=== PATIENT | female | born 1975 | race African-American/Black ===

== ENCOUNTER 2017-06-06 13:05 | Emergency (ER) | payer MEDICAID | END 2017-06-06 15:59 | disposition home or self-care (01) | LOC: D.ER 13:05 | DX: M25.512 Pain in left shoulder (principal); S46.912A Strain of unspecified muscle, fascia and tendon at shoulder and upper arm level, left arm, initial encounter; X58.XXXA Exposure to other specified factors, initial encounter; Y93.89 Activity, other specified; Y92.89 Other specified places as the place of occurrence of the external cause; M19.012 Primary osteoarthritis, left shoulder ==

== ENCOUNTER 2017-09-11 12:09 | Emergency (ER) | payer MEDICAID | END 2017-09-11 13:20 | disposition home or self-care (01) | LOC: D.ER 12:09 | DX: M25.562 Pain in left knee (principal); M32.9 Systemic lupus erythematosus, unspecified ==

== ENCOUNTER 2020-09-19 11:08 | Emergency (ER) | payer MEDICAID ==
[~2020-09-19] VITALS: Ht 172.7 cm; Wt 104.5 kg
[2020-09-19 11:23] VITALS: Ht 172.7 cm; Wt 104.5 kg
[2020-09-19] MEDS ORDERED: ALBUTEROL SULF8.5 GM INH ×2 (11:52→12:30)
[2020-09-19 12:06] LABS: INFLUENZA TYPE A NEGATIVE (NEGATIVE); INFLUENZA TYPE B NEGATIVE (NEGATIVE); SARS-CoV-2 ANTIGEN NEGATIVE- SARS-COV-2 (NEGATIVE)
[2020-09-19] MEDS ORDERED: CLARITIN 10 MG10 MG PO (12:29)
[2020-09-19] MEDS ORDERED: MUCINEX600 MG PO (12:29)
[2020-09-19 12:42] VITALS: BP 128/82
== END 2020-09-19 12:42 | disposition home or self-care (01) ==
LOC: D.ER 11:08
PROVIDERS: Family Medicine
DX: B34.9 Viral infection, unspecified (principal); Z20.822 Contact with and (suspected) exposure to COVID-19; M32.9 Systemic lupus erythematosus, unspecified; R43.8 Other disturbances of smell and taste